=== PATIENT | female | born 1945 | race Caucasian/White ===

== ENCOUNTER 2024-02-04 10:16 | Emergency (ER) | payer MEDICARE, OTHER, SELFPAY ==
[2024-02-04] VITALS (20 sets, daily range): BP systolic 155–232; BP diastolic 87–102; PULSE 63–73; RESP 13–23; TEMP 36.9; O2SAT 93–96; BMI 30.4
--- NOTE | 2024-02-04 10:30 | ED.NEUROSD ---
HPI - Neuro Symptoms/Deficit General Chief Complaint: Neuro Symptoms/Deficit Stated Complaint: ADAMS,increased lethargy,pt @ baseline neruologically Time Seen by Provider: 02/04/24 10:30 History of Present Illness HPI Narrative: Patient 78-year-old female history of stroke and falling presenting today with confusion. She is over at local rehab facility. Patient is able to give some history but overall poor historian. No records in our system. It appears that she was at [facility] recently. She has multiple bruising over her right arm. She is some right-sided deficits from previous stroke. She is on aspirin and Plavix. She has difficulty with word finding. She does complain of headache which she states she gets sometimes. She sometimes feels nauseous but is not nauseous now. now at bedside reports that she has had increasing tiredness. He states that she has had 2 strokes 1 where she had some right-sided deficits the other where she started having some speech difficulty. She was just released from [facility] to [facility] rehab. It is unclear exactly what happened but she did fall. started to notice that she was a little unsteady on her feet he told her to stay still while he went to go get something and call for help but she started moving when she fell onto her right shoulder. Not sure if she CVA. But she has been at [place]. He reports that she frequently presents with lethargy. Related Data Allergies Allergy/AdvReac Type Severity Reaction Status Date / Time levothyroxine AdvReac Verified 02/04/24 10:36 Sulfa (Sulfonamide AdvReac Verified 02/04/24 10:36 Antibiotics) Patient History Social History Smoking Status: Smoker, status unknown Exam Initial Vital Signs Initial Vital Signs: Vital Signs Pulse Rate 66 02/04/24 10:25 Respiratory Rate 19 02/04/24 10:25 Pulse Oximetry 94 02/04/24 10:25 GENERAL: Alert pleasant 78-year-old female and in [no acute] distress. HEENT: Head atraumatic,EOMI, pupils reactive, face symmetric, [moist] mucous membranes CARDIOVASCULAR: Regular rate and rhythm without murmurs, rubs or gallops. RESPIRATORY: Breath sounds equal bilaterally, no wheezes rales or rhonchi. ABDOMEN: Soft, nontender. Normoactive bowel sounds all 4 quadrants. No guarding or rebound. EXTREMITIES: Normal range of motion, no clubbing or edema. Neurovascularly intact NEUROLOGICAL: Alert and oriented x4. SKIN: Contusion over right shoulder chest some on then Course Orders Ordered: ED Orders 02/04/24 10:31 CBC Auto Diff [Complete Blood Count AUTO DIFF] Stat CMP [Comprehensive Metabolic Panel] Stat Lactate (Lactic Acid) Stat Procalcitonin Stat Troponin & CK Cardiac Panel Stat 02/04/24 10:35 CT head/brain wo con Stat XR chest 1V Stat XR shoulder RT min 2V Stat 02/04/24 10:46 Covid-19 + FLU A/B + RSV - PCR Stat 02/04/24 11:32 UA Complete [Urinalysis and Microscopic] Stat Discontinued Medications Acetaminophen (Acetaminophen 325 Mg Tablet) 975 mg PO NOW ONE Stop: 02/04/24 10:36 Last Admin: 02/04/24 10:51 Dose: 975 mg Documented By: JAMEL Labetalol HCl (Labetalol 20 Mg/4 Ml Syringe) 5 mg IV NOW ONE Stop: 02/04/24 11:31 Last Admin: 02/04/24 11:43 Dose: 5 mg Documented By: JAMEL Losartan Potassium (Losartan 50 Mg Tablet) 50 mg PO NOW ONE Stop: 02/04/24 12:52 Last Admin: 02/04/24 12:59 Dose: 50 mg Documented By: ES Metoprolol Succinate (Metoprolol Er 25 Mg Tablet) 25 mg PO NOW ONE Stop: 02/04/24 12:52 Last Admin: 02/04/24 12:58 Dose: 25 mg Documented By: DEMI Vital Signs Vital signs: Vital Signs - 8 hr 02/04/24 10:25 02/04/24 10:30 02/04/24 10:30 Temperature 98.5 F Pulse Rate 66 67 65 Respiratory Rate 19 18 21 Blood Pressure 218/102 H Pulse Oximetry 94 93 93 Oxygen Delivery Method Room Air 02/04/24 10:38 02/04/24 10:38 02/04/24 10:45 Temperature Pulse Rate 64 66 Respiratory Rate 13 15 Blood Pressure 215/97 H Pulse Oximetry 93 94 Oxygen Delivery Method 02/04/24 11:08 02/04/24 11:15 02/04/24 11:24 Temperature Pulse Rate 64 63 Respiratory Rate 13 13 Blood Pressure 232/95 H Pulse Oximetry 94 93 Oxygen Delivery Method 02/04/24 11:24 02/04/24 11:30 02/04/24 11:30 Temperature Pulse Rate 67 66 Respiratory Rate 16 16 Blood Pressure 229/101 H Pulse Oximetry 94 95 Oxygen Delivery Method 02/04/24 11:43 02/04/24 12:00 02/04/24 12:06 Temperature Pulse Rate 66 Respiratory Rate 22 Blood Pressure 229/101 H 155/94 H Pulse Oximetry 94 Oxygen Delivery Method 02/04/24 12:06 02/04/24 12:30 02/04/24 12:30 Temperature Pulse Rate 68 67 Respiratory Rate 20 23 Blood Pressure 209/89 H Pulse Oximetry 94 94 Oxygen Delivery Method Room Air 02/04/24 12:55 02/04/24 12:58 02/04/24 12:59 Temperature Pulse Rate 69 67 67 Respiratory Rate Blood Pressure 209/89 H 209/89 H 209/89 H Pulse Oximetry Oxygen Delivery Method 02/04/24 13:00 02/04/24 13:00 02/04/24 13:30 Temperature Pulse Rate 73 71 Respiratory Rate 22 22 Blood Pressure 225/89 H Pulse Oximetry 95 96 Oxygen Delivery Method 02/04/24 13:33 02/04/24 13:33 02/04/24 13:57 Temperature Pulse Rate 71 Respiratory Rate 19 Blood Pressure 218/101 H 205/87 H Pulse Oximetry 93 Oxygen Delivery Method 02/04/24 13:57 02/04/24 14:00 02/04/24 14:00 Temperature Pulse Rate 71 70 Respiratory Rate 22 22 Blood Pressure 215/95 H Pulse Oximetry 94 94 Oxygen Delivery Method MDM - Neuro Symptoms/Deficit Lab Data 02/04/24 10:31 02/04/24 10:31 Labs: Lab Results 02/04/24 02/04/24 02/04/24 Range/Units 10:31 10:46 11:32 WBC 7.3 (4.5-11.0) X10^3/uL RBC 4.52 (4.0-5.2) X10^6/uL Hgb 12.7 (12.0-16.0) g/dL Hct 37.6 (36-46) % MCV 83.1 (80-100) fL MCH 28.0 (26-34) PG MCHC 33.7 (30-36) % RDW 14.4 (11.6-14.8) % Plt Count 211 (150-400) X10^3/uL Neut % (Auto) 66.3 (50-75) % Lymph % (Auto) 24.9 L (25-40) % Larue % (Auto) 6.1 (3-14) % Eos % (Auto) 2.1 (2-4) % Baso % (Auto) 0.6 (0-2) % Neut # (Auto) 4800 (4649-1219) /uL Lymph # (Auto) 1800 (5307-2155) /uL Larue # (Auto) 400 (0-900) /uL Eos # (Auto) 200 (0-450) /uL Baso # (Auto) 0 (0-100) /uL Sodium 141 (137-145) mmol/L Potassium 4.3 (3.4-5.1) mmol/L Chloride 110 H (98-107) mmol/L Carbon Dioxide 28 (22-32) mmol/L BUN 23 H (7-17) mg/dL Creatinine 1.07 H (0.52-1.04) mg/dL Estimated GFR 53 L (>60) mL/min BUN/Creatinine Ratio 21.5 (6-22) Glucose 104 (80-110) mg/dL Lactate 0.7 (0.7-2.1) mmol/L Calcium 9.2 (8.4-10.2) mg/dL Total Bilirubin 0.7 (0.2-1.3) mg/dL AST 28 (14-36) IU/L ALT 24 (<35) IU/L Alkaline Phosphatase 81 (38-126) U/L Total Creatine Kinase 38 (30-135) U/L Troponin I < 0.012 (0.01-0.034) ng/mL Total Protein 6.9 (6.3-8.2) g/dL Albumin 3.9 (3.5-5.0) g/dL Globulin 3.0 (1.7-4.1) g/dL Albumin/Globulin Ratio 1.3 (1.0-2.8) Procalcitonin 0.11 (<0.5) ng/mL Urine Color Yellow Urine Appearance Clear Urine pH 7.0 (4.5-8.0) Ur Specific [place] 1.010 (1.000-1.035) Urine Protein Negative (Negative) Urine Glucose (UA) Negative (Negative) g/dL Urine Ketones Negative (NEGATIVE) Urine Occult Blood Negative (Negative) Urine Nitrate Negative (Negative) Urine Bilirubin Negative (NEGATIVE) Urine Urobilinogen 0.2 (0.2) E.U./dL Ur Leukocyte Esterase Negative (NEGATIVE) Urine RBC None seen (0-5/HPF) Urine WBC None seen (0-5/HPF) Ur Squamous Epith Cells None seen (0-5/HPF) Urine Bacteria None seen (None) Ur Culture Indicated? Cult not indicated Vol Urine Centrifuged 10ml (spun) SARS-CoV-2 (PCR) Negative (Negative) Influenza A (RT-PCR) Flu a negative (NEGATIVE) Influenza B (RT-PCR) Flu b negative (NEGATIVE) RSV (PCR) Negative (Negative) Imaging Data CT scan - head: Radiologist's Impression: PROCEDURE: CT HEAD/BRAIN WO CON INDICATIONS: headache confusion TECHNIQUE: Noncontrast 4.5 mm thick angled axial sections acquired from the foramen magnum to the vertex, with coronal and sagittal reformats. For radiation dose reduction, the following was used: automated exposure control, adjustment of mA and/or kV according to patient size. COMPARISON: None. FINDINGS: Image quality: Diagnostic. CSF spaces: Basal cisterns are patent. No extra-axial fluid collections. The ventricles are symmetric in size and shape. Brain: No intracranial bleeds or masses. There is cerebral volume loss for age, with resultant ventricular and sulcal prominence. There are periventricular and deep white matter chronic small vessel ischemic changes. There is intracranial internal carotid artery atherosclerosis. Remote left basal ganglia infarct. Skull and face: Calvarium and visualized facial bones appear intact, without suspicious lesions. Sinuses: Visualized sinuses and mastoids are clear. IMPRESSION: No acute intracranial pathology. Dictated by: Ridge Blair M.D. on 02/04/2024 at 11:14 Chest x-ray: Radiologist's Impression: PROCEDURE: XR CHEST 1V INDICATIONS: confusion TECHNIQUE: One view of the chest was acquired. COMPARISON: None. FINDINGS: Surgical changes and devices: None. Lungs and pleura: Hazy left basilar airspace opacity with low lung volumes. No pleural effusions or pneumothorax. Mediastinum: Mediastinal contours appear normal. Heart size is normal. Bones and chest wall: No suspicious bony lesions. Overlying soft tissues appear unremarkable. IMPRESSION: Hazy left basilar airspace opacity, presumably atelectasis in the setting of low lung volumes. Dictated by: Ridge Blair M.D. on 02/04/2024 at 11:18 Extremity x-ray #1: Radiologist's Impression: PROCEDURE: XR SHOULDER RT MIN 2V INDICATIONS: contusion TECHNIQUE: 3 views of the shoulder were acquired. COMPARISON: None. FINDINGS: Bones: No fractures or dislocations. No suspicious bony lesions. Visualized ribs appear intact. Soft tissues: No suspicious soft tissue calcifications. IMPRESSION: No acute bony abnormality. Dictated by: Ridge Blair M.D. on 02/04/2024 at 11:18 Approved by: Ridge Blair M.D. on 02/04/2024 at 11:18 ECG Data Attestation: I personally reviewed and interpreted this ECG as follows: Prior ECG tracings: not available for review Interpretation: Sinus rhythm rate 65 NJ interval 184 QRS [address] changes MDM Narrative Medical decision making narrative: Patient 78-year-old female presenting today with headache, hypertension and lethargy. Blood work has been reviewed overall no clinical significance, no UTI viral panel negative, no CESAR Imaging reviewed EKGs reviewed Records from [facility] has also been received and reviewed. She had CVA 10 years ago and 3 years ago with residual mild slurred speech and right-sided weakness presented to would be on 01/30/2024 for worsening slurred speech and right-sided weakness has been ongoing for the last 3 days. She was admitted for new stroke and elevated blood pressure. According to records blood pressure was not controlled on Cozaar and metoprolol and needed hydralazine. Blood pressure here remains elevated without evidence of end-organ damage. She has not having new symptoms I can appreciate. She has no injury from her previous fall. She has no evidence of infection. At this time has been has had bedside does not really report any worsening baseline mental status. Patient's blood pressure was elevated here in the ED she required a dose of labetalol which did help briefly, however it quickly came back up. She was given a home medication. She is persistently hypertensive in the emergency department but from what I gather from the chart she was pretty hypertensive in the during her stay it would be and frequently required labetalol and hydralazine. At this time recommend blood pressure control out patient. Discussed with and patient Discharge Plan Departure Patient Disposition: Home Clinical Impression: Hypertension Instructions: High Blood Pressure Activity Restrictions/Additional Instructions: *You have been diagnosed with hypertension *What to do: Blood pressure is noted to be high it was high at the hospital as well. Need better blood pressure control. Will need to follow-up with PCP. *Continue to take medications as directed *Follow up with your primary care provider in 2-3 days or call [phone] *Return to ER if you should have increasing confusion or any new, worsening or concerning symptoms Stand Alone Forms: Patient Portal/API
--- NOTE | 2024-02-04 10:35 | DI.CT.S_ITS ---
PROCEDURE: CT HEAD/BRAIN WO CON INDICATIONS: headache confusion TECHNIQUE: Noncontrast 4.5 mm thick angled axial sections acquired from the foramen magnum to the vertex, with coronal and sagittal reformats. For radiation dose reduction, the following was used: automated exposure control, adjustment of mA and/or kV according to patient size. COMPARISON: None. FINDINGS: Image quality: Diagnostic. CSF spaces: Basal cisterns are patent. No extra-axial fluid collections. The ventricles are symmetric in size and shape. Brain: No intracranial bleeds or masses. There is cerebral volume loss for age, with resultant ventricular and sulcal prominence. There are periventricular and deep white matter chronic small vessel ischemic changes. There is intracranial internal carotid artery atherosclerosis. Remote left basal ganglia infarct. Skull and face: Calvarium and visualized facial bones appear intact, without suspicious lesions. Sinuses: Visualized sinuses and mastoids are clear. IMPRESSION: No acute intracranial pathology. Dictated by: Ridge Blair M.D. on 02/04/2024 at 11:14 Approved by: Ridge Blair M.D. on 02/04/2024 at 11:16
--- NOTE | 2024-02-04 10:35 | DI.RAD.S_ITS ---
PROCEDURE: XR SHOULDER RT MIN 2V INDICATIONS: contusion TECHNIQUE: 3 views of the shoulder were acquired. COMPARISON: None. FINDINGS: Bones: No fractures or dislocations. No suspicious bony lesions. Visualized ribs appear intact. Soft tissues: No suspicious soft tissue calcifications. IMPRESSION: No acute bony abnormality. Dictated by: Ridge Blair M.D. on 02/04/2024 at 11:18 Approved by: Ridge Blair M.D. on 02/04/2024 at 11:18
--- NOTE | 2024-02-04 10:35 | DI.RAD.S_ITS ---
PROCEDURE: XR CHEST 1V INDICATIONS: confusion TECHNIQUE: One view of the chest was acquired. COMPARISON: None. FINDINGS: Surgical changes and devices: None. Lungs and pleura: Hazy left basilar airspace opacity with low lung volumes. No pleural effusions or pneumothorax. Mediastinum: Mediastinal contours appear normal. Heart size is normal. Bones and chest wall: No suspicious bony lesions. Overlying soft tissues appear unremarkable. IMPRESSION: Hazy left basilar airspace opacity, presumably atelectasis in the setting of low lung volumes. Dictated by: Ridge Blair M.D. on 02/04/2024 at 11:18 Approved by: Ridge Blair M.D. on 02/04/2024 at 11:19
[2024-02-04] MEDS: ACETAMINOPHEN 325 MG TABLET 975 MG PO (10:51)
[2024-02-04 10:57] LABS: Add Manual Diff / Slide Review NO; Basophils Absolute Auto 0 /uL (0-100); Basophils Percent Auto 0.6 % (0-2); Eosinophils Absolute Auto 200 /uL (0-450); Eosinophils Percent Auto 2.1 % (2-4); Hematocrit 37.6 % (36-46); Hemoglobin 12.7 g/dL (12.0-16.0); Lymphocytes Absolute Auto 1800 /uL (1100-4500); Lymphocytes Percent Auto 24.9 % (25-40); Mean Corpuscular HGB Conc 33.7 % (30-36); Mean Corpuscular Volume 83.1 fL (80-100); Monocytes Absolute Auto 400 /uL (0-900); Monocytes Percent Auto 6.1 % (3-14); Neutrophils Absolute Auto 4800 /uL (1500-7000); Neutrophils Percent Auto 66.3 % (50-75); Platelet Count 211 X10^3/uL (150-400); Red Blood Cell Count 4.52 X10^6/uL (4.0-5.2); Red Cell Distribution Width 14.4 % (11.6-14.8); White Blood Cell Count 7.3 X10^3/uL (4.5-11.0)
[2024-02-04 11:01] LABS: Lactate (Lactic Acid) 0.7 mmol/L (0.7-2.1)
[2024-02-04 11:03] LABS: Alanine Aminotransferase 24 IU/L (<35); Albumin 3.9 g/dL (3.5-5.0); Albumin Globulin Ratio 1.3 (1.0-2.8); Alkaline Phosphatase 81 U/L (38-126); Aspartate Aminotransferase 28 IU/L (14-36); BUN Creatinine Ratio 21.5 (6-22); Bilirubin Total 0.7 mg/dL (0.2-1.3); Blood Urea Nitrogen 23 mg/dL (7-17); Calcium 9.2 mg/dL (8.4-10.2); Carbon Dioxide 28 mmol/L (22-32); Chloride 110 mmol/L (98-107); Creatine Kinase 38 U/L (30-135); Estimated Glomerular Filt Rate 53 mL/min (>60); Glucose 104 mg/dL (80-110); HEMOLYSIS < 15 (0-50); Potassium 4.3 mmol/L (3.4-5.1); Sodium 141 mmol/L (137-145); Total Protein 6.9 g/dL (6.3-8.2)
[2024-02-04 11:14] LABS: Troponin I < 0.012 ng/mL (0.01-0.034)
[2024-02-04 11:19] LABS: Procalcitonin 0.11 ng/mL (<0.5)
[2024-02-04 11:39] LABS: COVID-19 CEPHEID 4-PLEX PCR Negative (Negative); Influenza A - CEPHEID Flu A NEGATIVE (NEGATIVE); Influenza B - CEPHEID Flu B NEGATIVE (NEGATIVE); Respiratory Syncytial Virus Negative (Negative)
[2024-02-04 11:40] LABS: Appearance Urine UA CLEAR; Bilirubin Urine UA NEGATIVE (NEGATIVE); Color Urine UA YELLOW; Glucose Urine UA NEGATIVE (Negative); Ketones Urine UA NEGATIVE (NEGATIVE); Leukocyte Esterase Urine UA NEGATIVE (NEGATIVE); Nitrite Urine UA NEGATIVE (Negative); Occult Blood Urine UA NEGATIVE (Negative); Protein Urine UA NEGATIVE (Negative); Urobilinogen Urine UA 0.2 E.U./dL (0.2)
[2024-02-04] MEDS: LABETALOL 20 MG/4 ML SYRINGE 5 MG IV (11:43)
[2024-02-04 11:53] LABS: Bacteria Urine None Seen; Culture Indicated Urine Cult Not Indicated; RBC Urine None Seen (0-5/HPF); Squamous Epithelial Cell Urine None Seen (0-5/HPF); Urine Volume 10mL (spun); WBC Urine None Seen (0-5/HPF)
[2024-02-04] MEDS: METOPROLOL ER 25 MG TABLET PO (12:58)
[2024-02-04] MEDS: LOSARTAN 50 MG TABLET PO (12:59)
--- NOTE | 2024-02-04 13:16 | PC.NURSE ---
Pt resides at [facility] after multiple CVA's and a fall. pt has bruising to R face, neck, chest, delt, and bilateral knees. pt is at her baseline mentation. States that she normally ambulates with a walker and today was too weak to get out of bed. Hypertensive 229/101, unsure if she received her HTN meds today.
== END 2024-02-04 14:15 | disposition home or self-care (01) ==
PROVIDERS: Emergency Provider Emergency Medicine
DX: I10 Essential (primary) hypertension (principal); Z79.01 Long term (current) use of anticoagulants; Z20.822 Contact with and (suspected) exposure to COVID-19
CPT/HCPCS: 0241U; 36415; 51701; 70450; 71045; 73030; 80053; 81001; 82550; 83605; 84145; 84484; 85025; 93005; 93010; 96374; 99284

== ENCOUNTER 2024-02-07 11:54 | Emergency (ER) | payer MEDICARE, OTHER, SELFPAY ==
[2024-02-07] VITALS (25 sets, daily range): BP systolic 205–248; BP diastolic 93–114; PULSE 63–78; RESP 10–27; O2SAT 91–98; BMI 27.6
--- NOTE | 2024-02-07 12:09 | DI.RAD.S_ITS ---
PROCEDURE: XR CHEST 1V INDICATIONS: htn, thompson TECHNIQUE: One view of the chest was acquired. COMPARISON: [facility], CR, XR CHEST 1V, 02/04/2024, 10:49. FINDINGS: Surgical changes and devices: None. Lungs and pleura: Left basilar atelectasis. No pleural effusions or pneumothorax. Mediastinum: Mediastinal contours appear normal. Heart size is normal. Bones and chest wall: No suspicious bony lesions. Overlying soft tissues appear unremarkable. IMPRESSION: No acute cardiopulmonary abnormality is seen. Dictated by: Ridge Blair M.D. on 02/07/2024 at 12:57 Approved by: Ridge Blair M.D. on 02/07/2024 at 12:57
--- NOTE | 2024-02-07 12:09 | DI.CT.S_ITS ---
PROCEDURE: CT ANGIO HEAD AND NECK INDICATIONS: htn, thompson TECHNIQUE: After the administration of intravenous contrast, 1 mm thick sections acquired from the aortic arch through the [place]. 3-dimensional ifbnozd-dhevdhvxc-rlxrusshuk (MIP) and/or volume rendering reformats were acquired of the central intracranial vasculature and neck separately. For radiation dose reduction, the following was used: automated exposure control, adjustment of mA and/or kV according to patient size. COMPARISON: None. FINDINGS: Image quality: Diagnostic. BRAIN: CSF spaces: Ventricles are normal in size and shape. Basal cisterns are patent. No extra-axial fluid collections. Brain: No significant abnormality of the brain can be seen. Skull and face: Calvarium and facial bones appear intact, without suspicious lesions. Orbits appear normal. Sinuses: Sinuses and mastoids are clear. HEAD CT ANGIOGRAPHY: Anterior circulation: Vessel irregularity of the distal segment of the left ICA (series 4, image 91). The flow within the paired anterior cerebral arteries is normal and symmetric. The flow within the middle cerebral arteries is normal and symmetric. The anterior communicating artery is seen. No aneurysms are seen. Posterior circulation: Termination of the left vertebral artery as the inferior cerebellar artery.. Flow within the posterior cerebral arteries is normal and symmetric. No aneurysms are seen. NECK CT ANGIOGRAPHY: Carotid system: The great vessels demonstrate a conventional anatomy as they arise from the aortic arch. The origins of the common carotid arteries appear patent. The common carotid arteries demonstrate normal caliber and courses. The bifurcation regions are both widely patent. The internal carotid arteries demonstrate normal calibers and courses. Posterior circulation: The origins of the vertebral arteries both appear widely patent. The more superior extracranial portions of both vertebral arteries also demonstrate normal courses and calibers. They join to form a normal appearing basilar artery. Soft tissues: Visualized neck soft tissues demonstrate no suspicious abnormalities. Bones: No suspicious bony lesions. Visualized cervical spine appears normally aligned. IMPRESSION: Vessel irregularity of the intracranial segment of the ICA, possibly noncalcified plaque or vasculitis. No significant abnormality is seen within the arteries of the neck. Any quantitative measurements of stenosis were performed using NASCET criteria. Dictated by: Ridge Blair M.D. on 02/07/2024 at 13:23 Approved by: Ridge Blair M.D. on 02/07/2024 at 13:27
--- NOTE | 2024-02-07 12:09 | DI.CT.S_ITS ---
PROCEDURE: CT HEAD/BRAIN WO CON INDICATIONS: htn, headaches TECHNIQUE: Noncontrast 4.5 mm thick angled axial sections acquired from the foramen magnum to the vertex, with coronal and sagittal reformats. For radiation dose reduction, the following was used: automated exposure control, adjustment of mA and/or kV according to patient size. COMPARISON: [facility], CT, CT HEAD/BRAIN WO CON, 02/04/2024, 10:55. FINDINGS: Image quality: Diagnostic. CSF spaces: Basal cisterns are patent. No extra-axial fluid collections. The ventricles are symmetric in size and shape. Brain: No intracranial bleeds or masses. There is cerebral volume loss for age, with resultant ventricular and sulcal prominence. There are periventricular and deep white matter chronic small vessel ischemic changes. There is intracranial internal carotid artery atherosclerosis. Skull and face: Calvarium and visualized facial bones appear intact, without suspicious lesions. Sinuses: Visualized sinuses and mastoids are clear. IMPRESSION: No acute intracranial pathology. Dictated by: Ridge Blair M.D. on 02/07/2024 at 12:54 Approved by: Ridge Blair M.D. on 02/07/2024 at 12:57
--- NOTE | 2024-02-07 12:12 | ED.GENADULT ---
HPI - General Adult General Chief complaint: Hypertension Stated complaint: HTN, Recent admission for same Time Seen by Provider: 02/07/24 12:00 Source: EMS Mode of arrival: EMS Limitations: no limitations History of Present Illness HPI narrative: 78-year-old female with history of stroke and right-sided hemiparesis, dyslipidemia, CLAUDINE, hypertension, aspirin with Plavix. Patient presents after having PT today and being noted to have evaluated blood pressure. She stably of some history, she has multiple bruising over her right cheek, chest and arm. She states she had a fall last Wednesday was seen here on 02/04/2020 for but not for this. She is able to give history but has some difficulty finding words at times. She does complain of a headache, she denies chest pain or shortness of breath. Denies any nausea or vomiting. She states she has right-sided weakness she states it waxes and wanes in intensity but is often significant. Denies any other GI or urinary symptoms. She was noted to be hypotensive on her ED visit on the as well. Related Data Home Medications Medication Instructions Recorded Confirmed acetaminophen 325 mg capsule 650 mg PO Q4H PRN pain 1-4 or fever 02/07/24 02/07/24 aspirin 81 mg tablet,delayed 81 mg PO DAILY 02/07/24 02/07/24 release atorvastatin 40 mg tablet 40 mg PO DAILY 02/07/24 02/07/24 cholestyramine (with sugar) 4 gram 1 ea PO DAILY 02/07/24 02/07/24 powder for susp in a packet clopidogrel 75 mg tablet 75 mg PO DAILY 02/07/24 02/07/24 losartan 50 mg tablet 50 mg PO DAILY 02/07/24 02/07/24 metoprolol tartrate 25 mg tablet 25 mg PO DAILY 02/07/24 02/07/24 prednisolone acetate 1 % eye 1 drp EYE-BOTH DAILY 02/07/24 02/07/24 drops,suspension sertraline 100 mg tablet 100 mg PO DAILY 02/07/24 02/07/24 Previous Rx's Medication Instructions Recorded hydrochlorothiazide 12.5 mg capsule 12.5 mg PO DAILY #10 caps 02/07/24 nifedipine 30 mg tablet,extended 30 mg PO BID #20 tabs 02/07/24 release Allergies Allergy/AdvReac Type Severity Reaction Status Date / Time levothyroxine AdvReac Verified 02/07/24 12:02 Sulfa (Sulfonamide AdvReac Verified 02/07/24 12:02 Antibiotics) Review of Systems Review of Systems ROS Unobtainable: All systems reviewed & are unremarkable except as noted in HPI and below Patient History Medical History Hyperlipidemia Obstructive sleep apnea 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 HEENT: Atraumatic, pupils are equal round reactive to light, extraocular movements are intact, nares are clear, TMs are clear with no fluid, there is no conjunctival pallor. Throat is clear without any exudates, erythema, tonsillar enlargement or uvular deviation, face appears symmetric. HEART: Regular rate and rhythm without murmur, clicks, rubs. No carotid bruits, pulses are equal in upper and lower extremities LUNGS:Lungs clear to auscultation, no wheezes, rales, crackles, chest moves symmetrically ABD:bowel sounds normal, soft, non-tender, no guarding, rebound, rigidity, no masses noted, no hepatosplenomegaly :No CVA tenderness MSCL: Non-tender, no muscle atrophy, muscles strength weak right greater than left. NEURO:CN 2-12 intact, sensation normal. SKIN: Patient has ecchymosis on her right cheek, chest, bilateral arms and legs which is somewhat greenish discoloration Initial Vital Signs Initial Vital Signs: Vital Signs Pulse Rate 67 02/07/24 11:56 Respiratory Rate 10 L 02/07/24 11:56 Pulse Oximetry 94 02/07/24 11:56 Oxygen Delivery Method Room Air 02/07/24 11:56 Course Orders Ordered: ED Orders 02/07/24 12:09 CT angio head and neck Stat CT head/brain wo con Stat XR chest 1V Stat EKG-12 Lead Stat 02/07/24 12:21 Complete Blood Count AUTO DIFF Stat Comprehensive Metabolic Panel Stat Lipase Stat NT-proBNP (BNP-Adult 18+) Stat PTT Partial Thromboplastin Juan Diego Stat Prothrombin Time INR Stat Troponin & CK Cardiac Panel Stat 02/07/24 14:40 Trop I [Troponin I] Stat 02/07/24 14:54 EKG-12 Lead Routine Discontinued Medications Furosemide (Furosemide 40 Mg/4 Ml Vial) 40 mg IV NOW ONE Stop: 02/07/24 14:12 Last Admin: 02/07/24 14:46 Dose: 40 mg Documented By: RACHEL Hydralazine HCl (Hydralazine 20 Mg/Ml Vial) 10 mg IV NOW ONE Stop: 02/07/24 13:27 Last Admin: 02/07/24 13:35 Dose: 10 mg Documented By: DAVID Sodium Chloride (Normal Saline 0.9%) 1,000 mls @ 150 mls/hr IV CONT EBONI Last Infusion: 02/07/24 16:02 Dose: Infused Documented By: Admin: 02/07/24 13:10 Dose: 150 mls/hr Documented By: CAITLIN Nifedipine (Nifedipine 10 Mg Capsule) 10 mg PO NOW ONE Stop: 02/07/24 14:11 Last Admin: 02/07/24 14:24 Dose: Not Given Documented By: DAVID Nifedipine (Nifedipine 30 Mg Tab Er) 30 mg PO NOW ONE Stop: 02/07/24 14:12 Last Admin: 02/07/24 14:46 Dose: 30 mg Documented By: RACHEL Vital Signs Vital signs: Vital Signs - 8 hr 02/07/24 11:56 02/07/24 12:00 02/07/24 12:07 Pulse Rate 67 67 Respiratory Rate 10 L 24 Blood Pressure 218/93 H Pulse Oximetry 94 94 Oxygen Delivery Method Room Air 02/07/24 12:31 02/07/24 12:32 02/07/24 12:32 Pulse Rate 64 65 Respiratory Rate 23 Blood Pressure 246/109 H Pulse Oximetry 95 Oxygen Delivery Method Room Air 02/07/24 12:48 02/07/24 12:48 02/07/24 13:00 Pulse Rate 66 63 Respiratory Rate 20 23 Blood Pressure 233/102 H Pulse Oximetry 91 93 Oxygen Delivery Method 02/07/24 13:17 02/07/24 13:17 02/07/24 13:18 Pulse Rate 64 64 Respiratory Rate 24 22 Blood Pressure 248/113 H 248/113 H Pulse Oximetry 95 95 Oxygen Delivery Method Room Air 02/07/24 13:20 02/07/24 13:20 02/07/24 13:30 Pulse Rate 64 63 Respiratory Rate 25 H 19 Blood Pressure 245/112 H Pulse Oximetry 97 95 Oxygen Delivery Method 02/07/24 13:33 02/07/24 13:33 02/07/24 13:35 Pulse Rate 63 Respiratory Rate 21 Blood Pressure 243/114 H 243/114 H Pulse Oximetry 95 Oxygen Delivery Method 02/07/24 13:45 02/07/24 13:45 02/07/24 14:00 Pulse Rate 66 Respiratory Rate 23 Blood Pressure 236/100 H 222/94 H Pulse Oximetry 96 Oxygen Delivery Method Room Air 02/07/24 14:00 02/07/24 14:15 02/07/24 14:15 Pulse Rate 72 68 Respiratory Rate 25 H 24 Blood Pressure 217/96 H Pulse Oximetry 98 96 Oxygen Delivery Method 02/07/24 14:30 02/07/24 14:30 02/07/24 14:45 Pulse Rate 70 Respiratory Rate 22 Blood Pressure 231/98 H 223/99 H Pulse Oximetry 97 Oxygen Delivery Method Room Air 02/07/24 14:45 02/07/24 14:46 02/07/24 15:00 Pulse Rate 78 71 Respiratory Rate 27 H Blood Pressure 223/99 H 215/97 H Pulse Oximetry 97 Oxygen Delivery Method Room Air 02/07/24 15:00 02/07/24 15:20 02/07/24 15:20 Pulse Rate 76 69 Respiratory Rate 24 Blood Pressure 230/98 H Pulse Oximetry 97 96 Oxygen Delivery Method Room Air Room Air 02/07/24 15:30 02/07/24 15:39 02/07/24 15:40 Pulse Rate 72 72 Respiratory Rate 23 25 H Blood Pressure 205/94 H Pulse Oximetry 96 96 Oxygen Delivery Method Room Air 02/07/24 16:02 Pulse Rate 74 Respiratory Rate Blood Pressure 205/94 H Pulse Oximetry 97 Oxygen Delivery Method Room Air Medical Decision Making Lab Data 02/07/24 12:21 02/07/24 12:21 Labs: Lab Results 02/07/24 02/07/24 Range/Units 12:21 14:40 WBC 8.1 (4.5-11.0) X10^3/uL RBC 4.33 (4.0-5.2) X10^6/uL Hgb 12.3 (12.0-16.0) g/dL Hct 36.7 (36-46) % MCV 84.7 (80-100) fL MCH 28.4 (26-34) PG MCHC 33.5 (30-36) % RDW 14.4 (11.6-14.8) % Plt Count 215 (150-400) X10^3/uL Neut % (Auto) 70.3 (50-75) % Lymph % (Auto) 20.8 L (25-40) % Snyder % (Auto) 6.2 (3-14) % Eos % (Auto) 1.9 L (2-4) % Baso % (Auto) 0.8 (0-2) % Neut # (Auto) 5700 (9722-0628) /uL Lymph # (Auto) 1700 (5477-6178) /uL Snyder # (Auto) 500 (0-900) /uL Eos # (Auto) 200 (0-450) /uL Baso # (Auto) 100 (0-100) /uL PT 11.4 (9.4-12.5) SECONDS INR 1.0 (0.9-1.3) APTT 32 (25.1-36.5) SECONDS Sodium 140 (137-145) mmol/L Potassium 4.4 (3.4-5.1) mmol/L Chloride 111 H (98-107) mmol/L Carbon Dioxide 24 (22-32) mmol/L BUN 21 H (7-17) mg/dL Creatinine 1.13 H (0.52-1.04) mg/dL Estimated GFR 49 L (>60) mL/min BUN/Creatinine Ratio 18.6 (6-22) Glucose 92 (80-110) mg/dL Calcium 8.7 (8.4-10.2) mg/dL Total Bilirubin 0.7 (0.2-1.3) mg/dL AST 29 (14-36) IU/L ALT 25 (<35) IU/L Alkaline Phosphatase 84 (38-126) U/L Total Creatine Kinase 36 (30-135) U/L Troponin I < 0.012 < 0.012 (0.01-0.034) ng/mL NT-Pro-B Natriuret Pep 1180 H (<450) pg/mL Total Protein 6.9 (6.3-8.2) g/dL Albumin 4.0 (3.5-5.0) g/dL Globulin 2.9 (1.7-4.1) g/dL Albumin/Globulin Ratio 1.4 (1.0-2.8) Lipase 94 (23-300) U/L Imaging Data CT scan - head: Radiologist's Impression: Dunia Tilley??78??F??1945 ? Allergy/Adv: levothyroxine, Sulfa (Sulfonamide Antibiotics) (More??) Close Head/Neck CTA 02/07/[address] (Signed) Ridge Blair - 02/07/24 Chest X-Ray (Signed) Johnnie,Ridge - 02/07/24 Shoulder X-Ray (Signed) Ridge Blair - 02/04/[address] (Signed) Johnnie,Ridge - 02/04/24 Chest X-Ray (Signed) Ridge Blair - 02/04/24 Launch?[place] [address] CT Scan Report Signed Patient: Dunia Tilley MR#: [id number] : 1945 Acct:[id number] Age/Sex: 78 / F Date of Service: 02/07/24 Loc: Accession Number: [id number] Procedure: CT head/brain wo con Ordering Provider: Juliana Dumont D.O. PROCEDURE: CT HEAD/BRAIN WO CON INDICATIONS: htn, headaches TECHNIQUE: Noncontrast 4.5 mm thick angled axial sections acquired from the foramen magnum to the vertex, with coronal and sagittal reformats. For radiation dose reduction, the following was used: automated exposure control, adjustment of mA and/or kV according to patient size. COMPARISON: [facility], CT, CT HEAD/BRAIN WO CON, 02/04/2024, 10:55. FINDINGS: Image quality: Diagnostic. CSF spaces: Basal cisterns are patent. No extra-axial fluid collections. The ventricles are symmetric in size and shape. Brain: No intracranial bleeds or masses. There is cerebral volume loss for age, with resultant ventricular and sulcal prominence. There are periventricular and deep white matter chronic small vessel ischemic changes. There is intracranial internal carotid artery atherosclerosis. Skull and face: Calvarium and visualized facial bones appear intact, without suspicious lesions. Sinuses: Visualized sinuses and mastoids are clear. IMPRESSION: No acute intracranial pathology. Dictated by: Ridge Blair M.D. on 02/07/2024 at 12:54 Approved by: Ridge Blair M.D. on 02/07/2024 at 12:57 CTA - brain/neck: Radiologist's Impression: Dunia Tilley??78??F??1945 ? Allergy/Adv: levothyroxine, Sulfa (Sulfonamide Antibiotics) (More??) Close Head/Neck CTA (Signed) Ridge Blair - 02/07/[address] (Signed) Johnnie,Ridge 02/07/24 Chest X-Ray (Signed) Johnnie,Ridge 02/07/24 Shoulder X-Ray (Signed) Johnnie,Ridge - 02/04/[address] (Signed) Johnnie,Ridge - 02/04/24 Chest X-Ray (Signed) Ridge Blair - 02/04/24 Launch?[place] [address] CT Scan Report Signed Patient: Dunia Tilley MR#: [id number] : 1945 Acct:[id number] Age/Sex: 78 / F Date of Service: 02/07/24 Loc: ED Accession Number: [id number] Procedure: CT angio head and neck Ordering Provider: Juliana Dumont D.O. PROCEDURE: CT ANGIO HEAD AND NECK INDICATIONS: htn, thompson TECHNIQUE: After the administration of intravenous contrast, 1 mm thick sections acquired from the aortic arch through the [place]. 3-dimensional ceutvdy-vbjyrkyux-fkuvqmnowt (MIP) and/or volume rendering reformats were acquired of the central intracranial vasculature and neck separately. For radiation dose reduction, the following was used: automated exposure control, adjustment of mA and/or kV according to patient size. COMPARISON: None. FINDINGS: Image quality: Diagnostic. BRAIN: CSF spaces: Ventricles are normal in size and shape. Basal cisterns are patent. No extra-axial fluid collections. Brain: No significant abnormality of the brain can be seen. Skull and face: Calvarium and facial bones appear intact, without suspicious lesions. Orbits appear normal. Sinuses: Sinuses and mastoids are clear. HEAD CT ANGIOGRAPHY: Anterior circulation: Vessel irregularity of the distal segment of the left ICA (series 4, image 91). The flow within the paired anterior cerebral arteries is normal and symmetric. The flow within the middle cerebral arteries is normal and symmetric. The anterior communicating artery is seen. No aneurysms are seen. Posterior circulation: Termination of the left vertebral artery as the inferior cerebellar artery.. Flow within the posterior cerebral arteries is normal and symmetric. No aneurysms are seen. NECK CT ANGIOGRAPHY: Carotid system: The great vessels demonstrate a conventional anatomy as they arise from the aortic arch. The origins of the common carotid arteries appear patent. The common carotid arteries demonstrate normal caliber and courses. The bifurcation regions are both widely patent. The internal carotid arteries demonstrate normal calibers and courses. Posterior circulation: The origins of the vertebral arteries both appear widely patent. The more superior extracranial portions of both vertebral arteries also demonstrate normal courses and calibers. They join to form a normal appearing basilar artery. Soft tissues: Visualized neck soft tissues demonstrate no suspicious abnormalities. Bones: No suspicious bony lesions. Visualized cervical spine appears normally aligned. IMPRESSION: Vessel irregularity of the intracranial segment of the ICA, possibly noncalcified plaque or vasculitis. No significant abnormality is seen within the arteries of the neck. Any quantitative measurements of stenosis were performed using NASCET criteria. Dictated by: Ridge Blair M.D. on 02/07/2024 at 13:23 Approved by: Ridge Blair M.D. on 02/07/2024 at 13:27 ECG Data Attestation: I personally reviewed and interpreted this ECG as follows: Prior ECG tracings: available for review Interpretation: Sinus rhythm rate of 66 IN 158 QRS of [address] QTC [address] No acute ST elevation, nonspecific change. Patient has prior from 02/04/2024 nonspecific change. No acute ST elevation on comparison to prior. Sinus rhythm rate of 74 IN 166 QRS of 90 QTC [address]. No acute ST elevation or depression noted. MDM Narrative Medical decision making narrative: 78-year-old female with history of prior stroke on aspirin, Plavix with appears to be recent falls in the past week. Patient did have a head CT at that time. It was negative for any acute change. She is quite hypertensive today and was noted to be hypertensive and received some labetalol while in the department and discharge instructions discussed adjusting patient's medications. Patient is overall alert but somewhat slow to answer questions appears to be mostly at baseline, had PT today and was noted to be quite hypertensive afterwards. Head CT shows no acute change. CT angio angio shows some vessel regular of the intracranial segment ICA possibly noncalcified plaque or vasculitis Labs show white count 8.1 hemoglobin of 12 hematocrit of 36, platelets 215, coags are negative, creatinine is 1.13 was 1.07 3 days ago. No priors for comparison, sodium is 140 potassium is 4 4 chloride 111 with a CO2 of 24 and a BUN 21, negative troponin, negative LFTs EKG shows no acute change. Rechecked patient's blood pressure has not significantly improved she states she did have her morning medications which should include her metoprolol and losartan. Was given a dose of hydralazine here, had some improvement from 248/113 to 222/190. Patient's most recent visit she had a CVA 10 years ago and 3 years ago with mild residual slurred speech and right-sided weakness was seen at [facility] for 3 days worsening, patient was admitted for new stroke and elevated blood pressure and required hydralazine during her stay without any evidence of end-organ damage. Spoke with Dr. Bishop, hospitalist; reviewed findings thus far. Patient's symptoms so far today. Had some mild improvement with hydralazine. He would recommend adding nifedipine 30 mg extended release twice daily and a diuretic. At this point sounds like hypertensive urgency but without end-organ damage so would likely not be able to keep for observation/admission. Did repeat troponin which is negative. Repeat EKG shows no dynamic changes. Patient received nifedipine oral as well as diuretic here in the department, patient continues to be hypertensive but overall downward trend. Discussed with patient she states she feels tired but denies any other symptoms currently. She feels comfortable returning back to her facility. Discussed we will start her on new medications for her blood pressure. Patient's also at bedside. Reviewed findings from today he feels comfortable with this plan feels comfortable with her returning back to home feels that she is at her baseline currently. Discharge Plan Departure Patient Disposition: Home Clinical Impression: Hypertension Activity Restrictions/Additional Instructions: Your blood pressure was quite elevated today as well as on your last visit. I would recommend adding nifedipine 30 mg extended release twice daily to her regimen as well as hydrochlorothiazide 12.5 mg daily. Prescription sent to [facility] pharmacy in [place] Please return for fevers, new or worsening headaches, altered mental status, new chest pain or shortness of breath, persistent vomiting, new swelling of extremities, other new changes or other new or concerning changes. Prescriptions: New nifedipine 30 mg tablet extended release 30 mg PO BID Qty: 20 0RF hydrochlorothiazide 12.5 mg capsule 12.5 mg PO DAILY Qty: 10 0RF No Action losartan 50 mg tablet 50 mg PO DAILY atorvastatin 40 mg tablet 40 mg PO DAILY sertraline 100 mg tablet 100 mg PO DAILY clopidogrel 75 mg tablet 75 mg PO DAILY prednisolone acetate 1 % drops,suspension 1 drp EYE-BOTH DAILY cholestyramine (with sugar) 4 gram powder in packet 1 ea PO DAILY metoprolol tartrate 25 mg tablet 25 mg PO DAILY aspirin [Aspir-81] 81 mg Tablet,Delayed Release (Dr/Ec) 81 mg PO DAILY acetaminophen 325 mg Capsule 650 mg PO Q4H PRN (Reason: pain 1-4 or fever) Stand Alone Forms: Patient Portal/API
--- NOTE | 2024-02-07 12:30 | PC.NURSE ---
Pt reports having a fall last wednesday due to a seizure. Hx of stroke. Pt has multiple old, yellow ecchymosis to right cheek and chin, right upper arm, right hand. She denies pain at these locations, reports abdominal aching pain 2/10. Pt expresses slight expressive aphasia, calling her right side left, and calling her left side, right. Pt alert to self, year, location, states Porter is the president. on the NIH stroke scale naming list, pt is unable to state the cactus or hammock, but reports i know what they are, and says she cannot think of the word. Pt reports right sided weakness, displays right sided facial droop. Right leg ataxia present.
[2024-02-07 12:32] LABS: Add Manual Diff / Slide Review NO; Basophils Absolute Auto 100 /uL (0-100); Basophils Percent Auto 0.8 % (0-2); Eosinophils Absolute Auto 200 /uL (0-450); Eosinophils Percent Auto 1.9 % (2-4); Hematocrit 36.7 % (36-46); Hemoglobin 12.3 g/dL (12.0-16.0); Lymphocytes Absolute Auto 1700 /uL (1100-4500); Lymphocytes Percent Auto 20.8 % (25-40); Mean Corpuscular HGB Conc 33.5 % (30-36); Mean Corpuscular Hemoglobin 28.4 PG (26-34); Mean Corpuscular Volume 84.7 fL (80-100); Monocytes Absolute Auto 500 /uL (0-900); Monocytes Percent Auto 6.2 % (3-14); Neutrophils Absolute Auto 5700 /uL (1500-7000); Neutrophils Percent Auto 70.3 % (50-75); Platelet Count 215 X10^3/uL (150-400); Red Blood Cell Count 4.33 X10^6/uL (4.0-5.2); Red Cell Distribution Width 14.4 % (11.6-14.8); White Blood Cell Count 8.1 X10^3/uL (4.5-11.0)
[2024-02-07 12:44] LABS: Alanine Aminotransferase 25 IU/L (<35); Albumin Globulin Ratio 1.4 (1.0-2.8); Alkaline Phosphatase 84 U/L (38-126); Aspartate Aminotransferase 29 IU/L (14-36); BUN Creatinine Ratio 18.6 (6-22); Bilirubin Total 0.7 mg/dL (0.2-1.3); Blood Urea Nitrogen 21 mg/dL (7-17); Calcium 8.7 mg/dL (8.4-10.2); Carbon Dioxide 24 mmol/L (22-32); Chloride 111 mmol/L (98-107); Creatine Kinase 36 U/L (30-135); Estimated Glomerular Filt Rate 49 mL/min (>60); Globulin 2.9 g/dL (1.7-4.1); Glucose 92 mg/dL (80-110); HEMOLYSIS 16 (0-50); Lipase 94 U/L (23-300); Potassium 4.4 mmol/L (3.4-5.1); Sodium 140 mmol/L (137-145); Total Protein 6.9 g/dL (6.3-8.2)
[2024-02-07 12:49] LABS: Prothrombin Time 11.4 SECONDS (9.4-12.5)
[2024-02-07 12:51] LABS: PTT Partial Thromboplastin Tim 32 SECONDS (25.1-36.5)
[2024-02-07 12:53] LABS: NT-proBNP (BNP-Adult 18+) 1180 pg/mL (<450)
[2024-02-07 12:56] LABS: Troponin I < 0.012 ng/mL (0.01-0.034)
[2024-02-07] MEDS: SODIUM CHLORIDE 0.9% 1,000 ML 150 ML IV (13:10)
[2024-02-07] MEDS: HYDRALAZINE 20 MG/ML VIAL 10 MG IV (13:35)
--- NOTE | 2024-02-07 14:11 | PM.CALLCOV.1 ---
Call Coverage Note Note Narrative of Care Provided: 78 F with difficult to control HTN at baseline. Evaluation fairly unremarkable, does not appear to have current hypertensive emergency. Hypertensive urgency is safe to be treated as an outpatient. Recommend initiation of diuretic therapy (possible HCTZ 12.5 mg ) and nifedipine 30 mg BID along with her current losartan and metoprolol and continued BP management with PCP. Would recommend follow up BMP in a couple of days with initiation of diuretic and continued BP monitoring at assisted living.
--- NOTE | 2024-02-07 14:37 | PC.NURSE ---
purewick placed; pt education given.
[2024-02-07] MEDS: FUROSEMIDE 40 MG/4 ML VIAL IV (14:46)
[2024-02-07] MEDS: NIFEdipine 30 MG TAB ER PO (14:46)
[2024-02-07 15:16] LABS: Troponin I < 0.012 ng/mL (0.01-0.034)
== END 2024-02-07 16:04 | disposition home or self-care (01) ==
PROVIDERS: Emergency Provider Emergency Medicine
DX: I10 Essential (primary) hypertension (principal); Z86.73 Personal history of transient ischemic attack (TIA), and cerebral infarction without residual deficits; Z79.01 Long term (current) use of anticoagulants
CPT/HCPCS: 36415; 70450; 70496; 70498; 71045; 80053; 82550; 83690; 83880; 84484; 85025; 85610; 85730; 93005; 96361; 96374; 96375; 99284; 99285; J0360; J1940; Q9967

== ENCOUNTER 2024-09-20 13:09 | Emergency (ER) | payer MEDICARE, OTHER, SELFPAY ==
[2024-09-20] VITALS (9 sets, daily range): BP systolic 152–195; BP diastolic 68–76; PULSE 65–75; RESP 18–19; TEMP 37; O2SAT 93–98; BMI 24.0
--- NOTE | 2024-09-20 13:28 | DI.CT.S_ITS ---
PROCEDURE: CT HEAD/BRAIN WO CON INDICATIONS: fall wednesday/ TECHNIQUE: Noncontrast 4.5 mm thick angled axial sections acquired from the foramen magnum to the vertex, with coronal and sagittal reformats. For radiation dose reduction, the following was used: automated exposure control, adjustment of mA and/or kV according to patient size. COMPARISON: [facility], CT, CT HEAD/BRAIN WO CON, 02/07/2024, 12:15. [facility], CT, CT HEAD/BRAIN WO CON, 02/04/2024, 10:55. FINDINGS: Image quality: Diagnostic. CSF spaces: Basal cisterns are patent. No extra-axial fluid collections. The ventricles are symmetric in size and shape. Brain: No acute intracranial hemorrhage or mass effect. Chronic lacunar infarct in the left basal ganglia, which appears unchanged. There is cerebral volume loss for age, with resultant ventricular and sulcal prominence. There are periventricular and deep white matter chronic small vessel ischemic changes. There is intracranial internal carotid artery atherosclerosis. Skull and face: Calvarium and visualized facial bones appear intact, without suspicious lesions. Sinuses: Visualized sinuses and mastoids are clear. IMPRESSION: No acute intracranial pathology. Approved by: Luis Fernando Bahena M.D. on 09/20/2024 at 13:47
--- NOTE | 2024-09-20 13:28 | DI.RAD.S_ITS ---
PROCEDURE: XR WRIST RT MIN 3V INDICATIONS: fall wednesday/ TECHNIQUE: 4 views of the wrist were acquired. COMPARISON: None. FINDINGS: Bones: No acute fractures or dislocations. No suspicious bony lesions. Generalized osteopenia. Soft tissues: No suspicious soft tissue calcifications. Soft tissue edema surrounding the wrist. IMPRESSION: Nonspecific soft tissue edema in the right wrist. No acute osseous abnormality. If there is continued clinical concern or persistent symptoms, repeat radiographs or cross-sectional imaging (e.g. CT, MRI) may be helpful for further evaluation. Approved by: Luis Fernando Bahena M.D. on 09/20/2024 at 13:56
--- NOTE | 2024-09-20 13:28 | DI.CT.S_ITS ---
PROCEDURE: CT CERVICAL SPINE WO CON INDICATIONS: fall wednesday/ TECHNIQUE: Noncontrast 3 mm thick sections acquired from the skull base to the T4 level. Sagittal and coronal reformats were then constructed. For radiation dose reduction, the following was used: automated exposure control, adjustment of mA and/or kV according to patient size. COMPARISON: None. FINDINGS: Image quality: Excellent. Bones: No acute fractures or dislocations. Visualized superior ribs are intact. Multilevel disc space narrowing and degenerative endplate changes. Multilevel uncovertebral joint and facet hypertrophy. Soft tissues: Mild subcutaneous edema posterior to the cervicothoracic junction. Prevertebral soft tissues are normal in thickness. No paravertebral hematomas. No apical pneumothoraces. IMPRESSION: No acute displaced fracture or traumatic subluxation. Approved by: Luis Fernando Bahena M.D. on 09/20/2024 at 13:50
--- NOTE | 2024-09-20 13:28 | DI.RAD.S_ITS ---
PROCEDURE: XR WRIST LT MIN 3V INDICATIONS: fall wednesday/ TECHNIQUE: 4 views of the wrist were acquired. COMPARISON: None. FINDINGS: Bones: Minimally displaced transverse fracture of the distal radius. Extension to the distal radial articular surface is not definitely seen. Nondisplaced fracture of the triquetrum. Degenerative changes are seen at the 1st carpometacarpal joint. Generalized osteopenia. Soft tissues: No suspicious soft tissue calcifications. Soft tissue edema surrounding the wrist. IMPRESSION: 1. Minimally displaced transverse fracture of the distal radius without definite extension to the distal radial articular surface. 2. Nondisplaced fracture of the triquetrum. Approved by: Luis Fernando Bahena M.D. on 09/20/2024 at 13:54
--- NOTE | 2024-09-20 16:05 | ED_ITS ---
HPI - Fall <Christi Villa PA-C - Last Filed: 09/20/24 18:09> General Chief Complaint: Trauma Stated Complaint: GLF, On Thinners, L Arm Injury Time Seen by Provider: 09/20/24 16:02 Source: patient Mode of arrival: Wheelchair History of Present Illness HPI Narrative: 79-year-old female brought in by her for a fall that occurred Wednesday 2 days ago. She was using her rolling walker to exit her front door at 11:00 a.m. in the morning, she states her rolling walker ?zoomed forward? she maintained corporate planner but this caused her to lose her footing stating she impacted her right knee and her leg folded under her, and her left leg extended forward outstretched. She was there for a couple of hours before her returned home to help her. At no time did she describe any precipitating events, she did not strike her head, she was unable to get herself up however and was basically stuck in this position for a couple of hours. Her main complaint is left wrist pain. She is denying any headache, neck pain, back pain, hip or pelvic pain, she is right-handed dominant. She is denying any new weakness in her lower legs, no issues with bowel or bladder, she currently takes Plavix for a stroke she had shawna mistry this year. When asked how she was doing yesterday she said fine just the pain in her wrist, she states she slept without difficulty, today she does endorse feeling a little bit more stiff in her legs and knees. She does not take aspirin. She takes her blood pressure medications at nighttime, she has a follow up with her PCP on October 12. All other systems reviewed and are negative. Related Data Home Medications Medication Instructions Recorded Confirmed acetaminophen 325 mg capsule 650 mg PO Q4H PRN pain 1-4 or fever 02/07/24 02/07/24 aspirin 81 mg tablet,delayed 81 mg PO DAILY 02/07/24 02/07/24 release atorvastatin 40 mg tablet 40 mg PO DAILY 02/07/24 02/07/24 cholestyramine (with sugar) 4 gram 1 ea PO DAILY 02/07/24 02/07/24 powder for susp in a packet clopidogrel 75 mg tablet 75 mg PO DAILY 02/07/24 02/07/24 losartan 50 mg tablet 50 mg PO DAILY 02/07/24 02/07/24 metoprolol tartrate 25 mg tablet 25 mg PO DAILY 02/07/24 02/07/24 prednisolone acetate 1 % eye 1 drp EYE-BOTH DAILY 02/07/24 02/07/24 drops,suspension sertraline 100 mg tablet 100 mg PO DAILY 02/07/24 02/07/24 Previous Rx's Medication Instructions Recorded hydrochlorothiazide 12.5 mg capsule 12.5 mg PO DAILY #10 caps 02/07/24 nifedipine 30 mg tablet,extended 30 mg PO BID #20 tabs 02/07/24 release Allergies Allergy/AdvReac Type Severity Reaction Status Date / Time levothyroxine AdvReac Verified 02/07/24 12:02 Sulfa (Sulfonamide AdvReac Verified 02/07/24 12:02 Antibiotics) Review of Systems <Christi Villa PA-C - Last Filed: 09/20/24 18:09> Review of Systems Narrative: All other systems reviewed and are negative. 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 [facility] Head: normal to inspection, normocephalic, atraumatic, No Dawn's sign, No contusion and No hematoma Nose: external nose normal, nares normal, nasal mucous membranes and turbinates normal, septum normal and No epistaxis Face and sinus: normal facial exam, sinuses nontender, face symmetric and no ecchymosis Mouth: oral mucosae normal, lip normal, tongue normal and oropharynx normal Teeth and gingiva: dentition normal and gingiva normal Throat: posterior oropharynx normal and uvula midline Eyes General: Yes appearance normal, both eyes and all related structures Conjunctivae: conjunctivae normal Sclera: sclerae normal Pupils: PERRL Neck Neck: normal visual inspection, full ROM, trachea midline, supple and No tender Chest Other: Anterior chest is atraumatic. Resp Effort & Inspection: normal respiratory effort Auscultation: clear to auscultation bilaterally, no rales, no rhonchi and no wheezes Other: Barrel hoop test is negative. Cardio Rate: regular rate Rhythm: regular rhythm GI Inspection: normal to inspection Palpation: soft and no hepatosplenomegaly Percussion: normal to percussion Auscultation: normal bowel sounds Back/Spine/Pelvis Other: No focal bony midline tenderness or interspace tenderness. Contusion to right thoracic paraspinous tissues, purple and faint yellow coloring. Mild tenderness without guarding. No crepitation. Left superior buttock just lateral to the cleft purple discoloration/contusion, no focal tenderness or guarding. Smaller contusion to the right buttock midway. Active range of motion is intact to the back and neck. No painful ROM elicited. She has full weightbear. Skin Other: No breaks in the skin, contusions are noted in their respective anatomical sections of this note. Neuro Cranial Nerves: CN's II-XI intact bilaterally and PERRL Other: Per her her speech is at the baseline, it is not slurred, slightly slow with her thought process but she is alert and oriented x4, she recalls the entire incident without deficit. She answers all my questions appropriately. Extrem Other: Able to stand from a seated position without assistance. She has full weightbear. Her gait is normal. She demonstrates single leg strength able to lift 1 ft and balance on the other bilaterally. She is exposed revealing contusion to her left anterior thigh, right lateral thigh yellow to purple discoloration x2, there is right anterior knee swelling without discoloration, right anterior somers large contusion with mild soft tissue swelling mid somers no guarding mild focal tenderness. She has full active range of motion of both hips, pelvic rock is negative. No issues identified with the ankles, active knee ROM is also grossly intact, she is negative for any joint line tenderness, no posterior swelling or palpable tenderness, no appreciable laxity, anterior and posterior drawer are negative. Negative with varus and valgus stressing. <Juliana Dumont DO - Last Filed: 09/26/24 07:43> Initial Vital Signs Initial Vital Signs: Vital Signs Temperature 98.6 F 09/20/24 13:12 Pulse Rate 70 09/20/24 13:12 Respiratory Rate 18 09/20/24 13:12 Blood Pressure 178/76 H 09/20/24 13:12 Pulse Oximetry 98 09/20/24 13:12 Oxygen Delivery Method Room Air 09/20/24 13:12 Procedures <Christi Villa PA-C - Last Filed: 09/20/24 18:09> [facility] of Procedure: Application of a Velcro thumb spica splint to the left wrist. Well-tolerated, she feels comfortable, distal neurovascular remains intact. Course <Christi Villa PA-C - Last Filed: 09/20/24 18:09> Orders Ordered: ED Orders 09/20/24 13:28 CT cervical spine wo con Stat CT head/brain wo con Stat XR wrist LT min 3V Stat XR wrist RT min 3V Stat 09/20/24 16:16 XR hip w pel if done LT 2V Stat 09/20/24 16:17 XR tibia fibula RT 2V Stat Vital Signs Vital signs: Vital Signs - 8 hr 09/20/24 13:12 09/20/24 13:58 09/20/24 14:00 Temperature 98.6 F Pulse Rate 70 67 Respiratory Rate 18 19 Blood Pressure 178/76 H 170/72 H Pulse Oximetry 98 96 Oxygen Delivery Method Room Air 09/20/24 14:00 09/20/24 14:30 09/20/24 14:30 Temperature Pulse Rate 67 65 Respiratory Rate 19 18 Blood Pressure 174/73 H Pulse Oximetry 97 95 Oxygen Delivery Method 09/20/24 15:00 09/20/24 15:01 09/20/24 15:01 Temperature Pulse Rate 67 67 Respiratory Rate Blood Pressure 195/74 H Pulse Oximetry 95 97 Oxygen Delivery Method 09/20/24 15:30 09/20/24 15:31 09/20/24 15:31 Temperature Pulse Rate 69 69 Respiratory Rate Blood Pressure 162/72 H Pulse Oximetry 93 95 Oxygen Delivery Method <Juliana Dumont DO - Last Filed: 09/26/24 07:43> Orders Ordered: ED Orders 09/20/24 13:28 CT cervical spine wo con Stat CT head/brain wo con Stat XR wrist LT min 3V Stat XR wrist RT min 3V Stat 09/20/24 16:16 XR hip w pel if done LT 2V Stat 09/20/24 16:17 XR tibia fibula RT 2V Stat Vital Signs Vital signs: Vital Signs - 8 hr 09/20/24 13:12 09/20/24 13:58 09/20/24 14:00 Temperature 98.6 F Pulse Rate 70 67 Respiratory Rate 18 19 Blood Pressure 178/76 H 170/72 H Pulse Oximetry 98 96 Oxygen Delivery Method Room Air 09/20/24 14:00 09/20/24 14:30 09/20/24 14:30 Temperature Pulse Rate 67 65 Respiratory Rate 19 18 Blood Pressure 174/73 H Pulse Oximetry 97 95 Oxygen Delivery Method 09/20/24 15:00 09/20/24 15:01 09/20/24 15:01 Temperature Pulse Rate 67 67 Respiratory Rate Blood Pressure 195/74 H Pulse Oximetry 95 97 Oxygen Delivery Method 09/20/24 15:30 09/20/24 15:31 09/20/24 15:31 Temperature Pulse Rate 69 69 Respiratory Rate Blood Pressure 162/72 H Pulse Oximetry 93 95 Oxygen Delivery Method MDM - Fall <Christi Villa PA-C - Last Filed: 09/20/24 18:09> Imaging Data Extremity x-ray #1: My Impression: Deferred to radiologist's interpretation below. Radiologist's Impression: PROCEDURE: XR WRIST LT MIN 3V INDICATIONS: fall wednesday/ TECHNIQUE: 4 views of the wrist were acquired. COMPARISON: None. FINDINGS: Bones: Minimally displaced transverse fracture of the distal radius. Extension to the distal radial articular surface is not definitely seen. Nondisplaced fracture of the triquetrum. Degenerative changes are seen at the 1st carpometacarpal joint. Generalized osteopenia. Soft tissues: No suspicious soft tissue calcifications. Soft tissue edema surrounding the wrist. IMPRESSION: 1. Minimally displaced transverse fracture of the distal radius without definite extension to the distal radial articular surface. 2. Nondisplaced fracture of the triquetrum. Approved by: Luis Fernando Bahena M.D. on 09/20/2024 at 13:54 Extremity x-ray #2: My Impression: Deferred to radiologist's interpretation below. Radiologist's Impression: PROCEDURE: XR WRIST RT MIN 3V INDICATIONS: fall wednesday/ TECHNIQUE: 4 views of the wrist were acquired. COMPARISON: None. FINDINGS: Bones: No acute fractures or dislocations. No suspicious bony lesions. Generalized osteopenia. Soft tissues: No suspicious soft tissue calcifications. Soft tissue edema surrounding the wrist. IMPRESSION: Nonspecific soft tissue edema in the right wrist. No acute osseous abnormality. If there is continued clinical concern or persistent symptoms, repeat radiographs or cross-sectional imaging (e.g. CT, MRI) may be helpful for further evaluation. Approved by: Luis Fernando Bahena M.D. on 09/20/2024 at 13:56 CT scan - head: My Impression: Deferred to radiologist's interpretation below. Radiologist's Impression: PROCEDURE: CT HEAD/BRAIN WO CON INDICATIONS: fall wednesday/ TECHNIQUE: Noncontrast 4.5 mm thick angled axial sections acquired from the foramen magnum to the vertex, with coronal and sagittal reformats. For radiation dose reduction, the following was used: automated exposure control, adjustment of mA and/or kV according to patient size. COMPARISON: [facility], CT, CT HEAD/BRAIN WO CON, 02/07/2024, 12:15. [facility], CT, CT HEAD/BRAIN WO CON, 02/04/2024, 10:55. FINDINGS: Image quality: Diagnostic. CSF spaces: Basal cisterns are patent. No extra-axial fluid collections. The ventricles are symmetric in size and shape. Brain: No acute intracranial hemorrhage or mass effect. Chronic lacunar infarct in the left basal ganglia, which appears unchanged. There is cerebral volume loss for age, with resultant ventricular and sulcal prominence. There are periventricular and deep white matter chronic small vessel ischemic changes. There is intracranial internal carotid artery atherosclerosis. Skull and face: Calvarium and visualized facial bones appear intact, without suspicious lesions. Sinuses: Visualized sinuses and mastoids are clear. IMPRESSION: No acute intracranial pathology. Approved by: Luis Fernando Bahena M.D. on 09/20/2024 at 13:47 CT - cervical spine: My Impression: Deferred to radiologist's interpretation below. Radiologist's Impression: PROCEDURE: CT CERVICAL SPINE WO CON INDICATIONS: fall wednesday/ TECHNIQUE: Noncontrast 3 mm thick sections acquired from the skull base to the T4 level. Sagittal and coronal reformats were then constructed. For radiation dose reduction, the following was used: automated exposure control, adjustment of mA and/or kV according to patient size. COMPARISON: None. FINDINGS: Image quality: Excellent. Bones: No acute fractures or dislocations. Visualized superior ribs are intact. Multilevel disc space narrowing and degenerative endplate changes. Multilevel uncovertebral joint and facet hypertrophy. Soft tissues: Mild subcutaneous edema posterior to the cervicothoracic junction. Prevertebral soft tissues are normal in thickness. No paravertebral hematomas. No apical pneumothoraces. IMPRESSION: No acute displaced fracture or traumatic subluxation. Approved by: Luis Fernando Bahena M.D. on 09/20/2024 at 13:50 Extremity x-ray #3: My Impression: Deferred to radiologist interpretation below. Radiologist's Impression: PROCEDURE: XR HIP W PEL IF DONE LT 2V INDICATIONS: Fall 2 days ago, contusions, left hip pain TECHNIQUE: AP pelvis with lateral view(s) of the left hip(s). COMPARISON: None. FINDINGS: Bones: No fractures or dislocations. Pelvic ring appears intact. No suspicious bony lesions. Mild bilateral hip degenerative change. Soft tissues: The visualized bowel gas pattern is normal. No suspicious soft tissue calcifications. IMPRESSION: No acute bony abnormality. Dictated by: Glenroy Kumar M.D. on 09/20/2024 at 17:22 Approved by: Glenroy Kumar M.D. on 09/20/2024 at 17:22 Extremity x-ray #4: My Impression: Deferred to radiologist's interpretation below. Radiologist's Impression: PROCEDURE: XR TIBIA FUBULA RT 2V INDICATIONS: Fall 2 days ago, contusion and swelling right somers TECHNIQUE: 2 views of the tibia and fibula were acquired. COMPARISON: None. FINDINGS: Bones: No fractures or dislocations. No suspicious bony lesions. Soft tissues: No suspicious soft tissue calcifications or masses. IMPRESSION: No acute bony abnormality. Dictated by: Glenroy Kumar M.D. on 09/20/2024 at 17:23 Approved by: Glenroy Kumar M.D. on 09/20/2024 at 17:23 [facility] Narrative Medical decision making narrative: Mechanical fall, patient did not strike her head she recalls the incident in great detail. She waited 2 days thinking her symptoms would get better, her main complaint is the left wrist which does demonstrate a distal radius fracture as well as a triquetrum fracture she was placed in a Velcro thumb spica splint and she feels comfortable, the choice was based on the risks benefit, she still needs the assistance of her rolling walker and I think this will be the safest option for her rather than traditional sugar-tong. We will have her follow up with Orthopedics of course. She states she had no issues sleeping last night, she was completely disrobed and examined she has multiple contusions, not uncommon for someone on Plavix, somewhere dark purple and yellowing so some could be old, there was no rizwana redness or hematomas per se just garden variety flat contusions. We did obtain additional x-rays of her left hip, pelvis, right tib-fib due to the contusions but she has really not complaining of any bony pain. They were both negative. I have given her details for Dr. Jesus who was the on-call orthopedics also specializes in the upper extremity. They are familiar with [facility]. I have asked him to contact their regular doctor as well for follow-up although she does have an appointment October 12 which is roughly 3 weeks away. Red flag warning signs are reviewed in great detail. She will seek medical attention if she has any new worrisome symptoms, increasing pain, any increased swelling or any other concerns. Overall she feels comfortable with the splint and is ready to go home. Her discharge blood pressure was improved. Discharge Plan Departure Patient Disposition: Home Clinical Impression: Contusion of multiple sites Distal radius fracture, left Qualifiers: Encounter type: initial encounter Fracture type: closed Fracture morphology: unspecified fracture morphology Qualified Code(s): S52.502A - Unspecified fracture of the lower end of left radius, initial encounter for closed fracture Fracture of triquetrum of left wrist, closed Qualifiers: Encounter type: initial encounter Fracture alignment: nondisplaced Qualified Code(s): S62.115A - Nondisplaced fracture of triquetrum [cuneiform] bone, left wrist, initial encounter for closed fracture Fall Qualifiers: Encounter type: initial encounter Qualified Code(s): W19.XXXA - Unspecified fall, initial encounter Instructions: DI for Trauma, DI for Distal Radius Fracture Activity Restrictions/Additional Instructions: You have a distal radius fracture (part of your wrist) in addition to a small bone in the wrist called the triquetrum. Please wear the splint at all times, I would like you to avoid removing it for bathing, as this can prolonged healing and cause pain or puts you at risk for worsening injury. Use caution when using a rolling walker. Please contact Orthopedics for follow-up. You may use ice, Tylenol as needed for pain, elevate your splinted arm as much as possible this will reduce swelling. You have several bruises those should improve over time, you may apply ice to any of these locations but not directly to skin use a washcloth. Please keep your appointment with your primary care provider on October 12 but I would also call their office and let them know of your new injuries. Please do not hesitate to return to the emergency department if you experiencing any new worrisome symptoms, any worsening pain, or any other concerns. Prescriptions: No Action losartan 50 mg tablet 50 mg PO DAILY atorvastatin 40 mg tablet 40 mg PO DAILY sertraline 100 mg tablet 100 mg PO DAILY clopidogrel 75 mg tablet 75 mg PO DAILY prednisolone acetate 1 % drops,suspension 1 drp EYE-BOTH DAILY cholestyramine (with sugar) 4 gram powder in packet 1 ea PO DAILY metoprolol tartrate 25 mg tablet 25 mg PO DAILY aspirin [Aspir-81] 81 mg Tablet,Delayed Release (Dr/Ec) 81 mg PO DAILY acetaminophen 325 mg Capsule 650 mg PO Q4H PRN (Reason: pain 1-4 or fever) nifedipine 30 mg tablet extended release 30 mg PO BID Qty: 20 0RF hydrochlorothiazide 12.5 mg capsule 12.5 mg PO DAILY Qty: 10 0RF Referrals: Rusty Jesus MD [Physician] - (Closed left distal radius and triquetrum fracture status post fall 09/18/24.) Stand Alone Forms: Patient Portal/API/Survey ED Sign-out <Juliana Dumont DO - Last Filed: 09/26/24 07:43> Cosign ED Attending Coslayneature Attestation: I was immediately available in the department for consultation.
--- NOTE | 2024-09-20 16:16 | DI.RAD.S_ITS ---
PROCEDURE: XR HIP W PEL IF DONE LT 2V INDICATIONS: Fall 2 days ago, contusions, left hip pain TECHNIQUE: AP pelvis with lateral view(s) of the left hip(s). COMPARISON: None. FINDINGS: Bones: No fractures or dislocations. Pelvic ring appears intact. No suspicious bony lesions. Mild bilateral hip degenerative change. Soft tissues: The visualized bowel gas pattern is normal. No suspicious soft tissue calcifications. IMPRESSION: No acute bony abnormality. Dictated by: Glenroy Kumar M.D. on 09/20/2024 at 17:22 Approved by: Glenroy Kumar M.D. on 09/20/2024 at 17:22
--- NOTE | 2024-09-20 16:17 | DI.RAD.S_ITS ---
PROCEDURE: XR TIBIA FUBULA RT 2V INDICATIONS: Fall 2 days ago, contusion and swelling right somers TECHNIQUE: 2 views of the tibia and fibula were acquired. COMPARISON: None. FINDINGS: Bones: No fractures or dislocations. No suspicious bony lesions. Soft tissues: No suspicious soft tissue calcifications or masses. IMPRESSION: No acute bony abnormality. Dictated by: Glenroy Kumar M.D. on 09/20/2024 at 17:23 Approved by: Glenroy Kumar M.D. on 09/20/2024 at 17:23
== END 2024-09-20 17:52 | disposition home or self-care (01) ==
PROVIDERS: Emergency Provider Physician Assistant Medical
DX: S52.502A Unspecified fracture of the lower end of left radius, initial encounter for closed fracture (principal); S62.115A Nondisplaced fracture of triquetrum [cuneiform] bone, left wrist, initial encounter for closed fracture; S20.221A Contusion of right back wall of thorax, initial encounter; S30.0XXA Contusion of lower back and pelvis, initial encounter; S70.12XA Contusion of left thigh, initial encounter; S70.11XA Contusion of right thigh, initial encounter; W18.30XA Fall on same level, unspecified, initial encounter; Z79.01 Long term (current) use of anticoagulants; Z86.73 Personal history of transient ischemic attack (TIA), and cerebral infarction without residual deficits
CPT/HCPCS: 70450; 72125; 73110; 73502; 73590; 99283; 99284